=== PATIENT | female | born 1970 | race Caucasian/White ===

== ENCOUNTER 2016-09-03 13:32 | Emergency (ER) | payer MEDICARE ==
[2016-09-03 13:55] LABS: Mean Cell Volume 88.3 fl (78-100); Mean Corpuscular Hemoglobin 27.1 pg (26-32); Mean Platelet Volume 8.9 fl (6-9.5); Platelet Count 563 K/mm3 (150-450); Red Blood Count 3.17 M/mm3 (4.1-5.4); White Blood Count 9.8 K/mm3 (4.0-10.5)
--- NOTE | 2016-09-03 13:57 | ERPHSYRPT ---
- History of Present Illness Time Seen by Provider: 09/03/16 13:42 Source: patient Patient Subjective Stated Complaint: Pt states she had radiation today for a tumor in the left lung. When she got home she started having heaviness in the left arm. She says she has never had this before. Triage Nursing Assessment: Pt alert and oriented x3. skin pink warm and dry. afebrile. left radial pulse present and regular. no weakness noted in LUE. pain with movement - pt states is normal d/t tumor. no facial drooping noted. pupils 3mm and reactive Physician History: CC: left arm weakness/numbness Hx: 46 y/o patient of Dr Cordero with hx of Stage 4 sarcoma. She went home this AM from XRT and at around 10AM she felt weakness and tingling in left upper arm. She has feeling of popping sensation in neck. No hx of stroke or heart disease. She has chronic chest pains from the sarcoma. She has hx of neurofibromatosis. Timing/Duration: today (10aM) Severity: mild Allergies/Adverse Reactions: morphine Allergy (Verified 09/03/16 13:41) Home Medications: Alprazolam 1 mg [Xanax 1 mg] 1 mg PO TID PRN 03/27/14 [History] Duloxetine HCl [Cymbalta] 90 mg PO DAILY 03/27/14 [History] Gabapentin 800 mg PO TID 03/27/14 [History] Oxycodone HCl [Roxicodone] 30 mg PO Q4H PRN 06/22/14 [History] Oxycodone HCl [Oxycontin] 80 mg PO BID 06/06/15 [History] Fluticasone/Salmeterol [Advair 250-50 Diskus] 2 puff IH DAILY 11/20/15 [History] Trazodone HCl 100 mg PO HS 11/20/15 [History] Hx Tetanus, Diphtheria Vaccination/Date Given: Yes Hx Influenza Vaccination/Date Given: Yes Hx Pneumococcal Vaccination/Date Given: No Immunizations Up to Date: Yes - Review of Systems Constitutional: No Fever, No Chills Eyes: No Symptoms Ears, Nose, & Throat: No Symptoms Cardiac: Chest Pain (chronic) Abdominal/Gastrointestinal: No Abdominal Pain, No Nausea, No Vomiting Musculoskeletal: Neck Pain, No Back Pain, No Fall, No Injury Skin: No Rash Neurological: Focal Weakness (left upper arm), Parasthesia (left arm), No Headache All Other Systems: Reviewed and Negative - Past Medical History Pertinent Past Medical History: Yes Neurological History: Other ENT History: No Pertinent History Cardiac History: Hypertension Respiratory History: Asthma, Lung Cancer Endocrine Medical History: No Pertinent History Musculoskeletal History: Other GI Medical History: Hernia History: No Pertinent History Psycho-Social History: Anxiety, Depression Female Reproductive Disorders: No Pertinent History Other Medical History: 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 upper portion of the left lung removed along with a tumor - Social History Smoking Status: Never smoker Exposure to second hand smoke: Yes Alcohol Use: Socially Drug Use: none Patient Lives Alone: No Significant Family History: other - Female History Hx Now: No - Nursing Vital Signs Nursing Vital Signs: Initial Vital Signs Temperature 98.3 F Temperature Source Oral Pulse Rate 108 Respiratory Rate 20 Blood Pressure [Right Arm] 114/72 Pain Intensity 6 - [place] Coma Scale Best Eye Response ([place]): (4) open spontaneously Best Verbal Response ([place]): (5) oriented Best Motor Response ([place]): (6) obeys commands [place] Total: 15 - Physical Exam General Appearance: alert Eye Exam: bilateral eye: PERRL, EOMI Ears, Nose, Throat Exam: moist mucous membranes Neck Exam: midline tenderness Respiratory: diminished breath sounds, No respiratory distress Cardiovascular: regular rate/rhythm Gastrointestinal: soft, No tenderness, No distention, No mass, No guarding Extremity Exam: normal inspection Mental Status: alert, oriented x 3, cooperative controls design engineer Exam: normal hearing, normal speech, PERRL Skin Exam: warm, dry, other (scattered neurofibromas) SpO2 Interpretation: normal SpO2: 98 Oxygen Delivery: Room Air Comments: ROM intact both arms and legs. She appears to have mild weakness of the left upper arm. - Course Nursing assessment & vital signs reviewed: Yes EKG Interpreted by Me: RATE (110), Sinus Tach, NORMAL AXIS, NORMAL INTERVALS ( QTc 374), Non-specific ST Changes - Radiology Exams cxr X-ray Interpretation: Discussed w/ radiologist (worsening tumor with rib destruction) - CT Exams head CT Interpretation: Negative, Tele-radiologist Report cervical CT Interpretation: Tele-radiologist Report, No Fracture (no bony destructive lesions) Ordered Tests: Active Orders 24 hr Category Date Time Status EKG-ER Only STAT Care 09/03/16 13:50 Active IV Insertion STAT Care 09/03/16 13:50 Active NPO (ED) STAT Care 09/03/16 13:50 Active Pulse Oximetry (ED) STAT Care 09/03/16 13:50 Active CERVICAL SPINE WO CONTRAST [CT] Stat Exams 09/03/16 13:50 Completed CHEST 2 VIEWS (PA AND LAT) Stat Exams 09/03/16 13:51 Completed HEAD WITHOUT CONTRAST [CT] Stat Exams 09/03/16 13:50 Completed CBC W DIFF Stat Lab 09/03/16 13:40 Completed CMP Stat Lab 09/03/16 13:40 Completed Manual Differential NC Stat Lab 09/03/16 13:40 Completed PROTIME WITH INR Stat Lab 09/03/16 13:40 Completed PTT Stat Lab 09/03/16 13:40 Completed Lab/Rad Data: Laboratory Result Diagrams 09/03/16 13:40 09/03/16 13:40 Laboratory Results 09/03/16 09/03/16 09/03/16 Range/Units 13:40 13:40 13:40 WBC 9.8 (4.0-10.5) K/mm3 RBC 3.17 L (4.1-5.4) M/mm3 Hgb 8.6 L (12.0-16.0) gm/dl Hct 28.0 L (35-47) % MCV 88.3 (78-100) fl MCH 27.1 (26-32) pg MCHC 30.7 L (32-36) g/dl RDW 16.0 H (11.5-14.0) % Plt Count 563 H (150-450) K/mm3 MPV 8.9 (6-9.5) fl Segmented Neutrophils 89 H (36.0-66.0) % Lymphocytes (Manual) 6 L (24-44) % Monocytes (Manual) 3 (0.0-12.0) % Eosinophils (Manual) 1 (0.00-3.0) % Basophils (Manual) 1 (0.0-1.0) % Differential Comment ABNORMAL Platelet Estimate INCREASED (NORMAL) Anisocytosis 1+ INR 1.37 (0.8-3.0) PTT 32.8 (25.3-37.0) SECONDS Sodium 132 L (136-145) mEq/L Potassium 4.4 (3.5-5.1) mEq/L Chloride 96 L (98-107) mEq/L Carbon Dioxide 29.7 (21-32) mEq/L Anion Gap 10.8 (5-15) MEQ/L BUN 9 (9-20) mg/dL Creatinine 0.70 (0.55-1.30) mg/dl Estimated GFR > 60 ML/MIN Glucose 117 H (70-110) MG/DL Calcium 9.7 (8.5-10.1) mg/dL Total Bilirubin 0.4 (0.2-1.0) mg/dL AST 18 (15-37) U/L ALT 9 L (12-78) U/L Alkaline Phosphatase 203 H (46-116) U/L Serum Total Protein 6.7 (6.4-8.2) gm/dL Albumin 2.0 L (3.4-5.0) g/dL - Progress Progress Note: 09/03/16 13:55 She has hx of stage 4 sarcoma. Unable to get MRI due to spinal cord stimulator implanted. Will get CT head and cervical to evaluate for stroke or structural spinal lesion. Patient is not TPA candidate as time of presentation is greater than 3 hours, low NIH score, and sarcoma. 09/03/16 15:29 Pt stable. NIH score 0. Likely nerve impingement from tumor or inflammation for XRT. Spoke to Dr Wilfred Cook her radiation oncologist. He will review reports and see her as scheduled tomorrow. Counseled pt/family regarding: lab results, diagnosis, need for follow-up, rad results - Departure Time of Disposition: 15:30 Departure Disposition: Home Clinical Impression: Left arm weakness, left chest sarcoma Condition: Stable Critical Care Time: No Referrals: GÓMEZ CORDERO MD [Primary Care Provider] - WILFRED COOK [NON-STAFF PHY W/O PRIVILEGES] - Instructions: Numbness/tingling Additional Instructions: See Dr Joyce tomorrow as scheduled. Return for problems or concerns.
[2016-09-03 14:21] LABS: ALKALINE PHOSPHATASE 203 U/L (46-116); ANION GAP 10.8 MEQ/L (5-15); BILIRUBIN,TOTAL 0.4 mg/dL (0.2-1.0); BLOOD UREA NITROGEN 9 mg/dL (9-20); CHLORIDE 96 mEq/L (98-107); Carbon Dioxide 29.7 mEq/L (21-32); Glucose 117 MG/DL (70-110); Potassium 4.4 mEq/L (3.5-5.1); SGOT/AST 18 U/L (15-37); SGPT/ALT 9 U/L (12-78); SODIUM 132 mEq/L (136-145); Total Protein 6.7 gm/dL (6.4-8.2)
[2016-09-03 14:22] LABS: INR 1.37 (0.8-3.0); PROTIME 15.2 SECONDS (9.95-12.35)
[2016-09-03 14:24] LABS: PTT 32.8 SECONDS (25.3-37.0)
--- NOTE | 2016-09-03 14:56 | XRAY ---
Indication: Left arm weakness/numbness. Known left lung tumor. Multiple contiguous axial images obtained through the head without contrast. Comparison: April 26, 2011 Ventriculosulcal pattern appears symmetric. Again no acute intracranial hemorrhage, abnormal extra-axial fluid collection, or mass effect. Fourth ventricle is midline without hydrocephalus. Slater-white matter differentiation preserved. Bony calvarium intact without suspicious lytic/blastic lesion. Visualized paranasal sinuses and mastoid air cells are pneumatized and clear. Impression: Stable negative CT head without contrast exam. CT DI 67.22
--- NOTE | 2016-09-03 15:00 | XRAY ---
Indication: Left arm weakness/numbness. Known left lung tumor. Multiple contiguous axial images obtained through the cervical spine. Sagittal and coronal reformatted images obtained. Comparison: February 02, 2011 Again spinal stimulator leads posterior to the C2-C4 lamina produces extreme beam artifact limiting these levels. No acute fracture, suspicious bony lesions, or spinal canal stenosis. Sagittal and coronal reformatted images demonstrates slight lordotic reversal, positional versus paraspinal spasm. Disc spaces maintained. No acute compression fracture, subluxation, or jumped facet. Normal-appearing craniocervical junction. Visualized noncontrasted soft tissues including base of the brain unremarkable. Visualized left lung apex demonstrates new pleural thickening. Impression: 1. Again posterior C2-C4 similar leads produces beam artifact. 2. Stable lordotic reversal, positional versus paraspinal spasm. 3. No acute fracture or spinal canal stenosis. 4. New left apical pleural thickening incompletely visualized. CT DI 35.21
--- NOTE | 2016-09-03 15:06 | XRAY ---
Indication: Left arm weakness/numbness. Known left lung tumor. Comparison: April 02, 2016 PA/lateral chest demonstrate continued enlarging left lung pleural-based mass with worsening left lung compressive atelectasis and near complete left hemithorax opacification. Increasing left apical pleural thickening. Left 4th-6th ribs demonstrate worsening erosive appearance. Right lung clear. Heart is again translated and grossly not enlarged. Previous right venous access catheter has removed. Stable cervical spinal stimulator leads. Impression: Worsening left lung malignancy with again compressive atelectasis and continued worsening left rib destruction as detailed.
[2016-09-03 15:11] LABS: Basophil 1 % (0.0-1.0); Eosinophil 1 % (0.00-3.0); Total Cells Counted 100
[2016-09-03 15:12] LABS: Platelet Estimate INCREASED (NORMAL)
[2016-09-03 15:14] LABS: ANISOCYTOSIS 1+
[2016-09-03] MEDS ORDERED: OXYCODONE-ACETAMINOPHEN 10-325 PO STA (15:58)
[2016-09-03] MEDS ORDERED: OXYCODONE-ACETAMINOPHEN 10-325 ONE (16:02)
[2016-09-03 16:06] VITALS: BP 112/61; PULSE 103; O2SAT 97
== END 2016-09-03 16:10 | disposition home or self-care (01) ==
LOC: ED 13:32
DX: R29.898 Other symptoms and signs involving the musculoskeletal system (principal); C76.1 Malignant neoplasm of thorax
CPT/HCPCS: 36000; 36415; 70450; 71020; 72125; 80053; 85025; 85610; 85730; 93005; 99283; 99284; L0120

== ENCOUNTER 2016-09-13 08:24 | Emergency (ER) | payer MEDICARE ==
[2016-09-13] MEDS ORDERED: Hydromorphone 1 mg/ml Ampule IV ONE ×2 (08:38→09:46)
--- NOTE | 2016-09-13 08:45 | ERPHSYRPT ---
- History of Present Illness Time Seen by Provider: 09/13/16 08:28 Source: patient, family (son) Patient Subjective Stated Complaint: Pt states she was sitting in the edge of the bed and fell off last night around 9pm. Pt hit chest and left side on the bedside table. Complaining of difficulties breathing and pain under the left breast. Pt states she also hit right lower leg. Triage Nursing Assessment: Pt alert and oriented x3. skin pink warm and dry. afebrile. respirations rapid and shallow. pt moaning with movement Physician History: CC: left chest injury Hx: 46 y/o patient with long hx of stage 4 sarcoma. She has recently finished palliative XRT left chest and is now on hospice. She fell from the bed last night and has left chest pain with difficulty breathing. Some right leg pain at her pre-existing tumor excision/hematoma site. She has increased dyspnea. Took pain medication at home. Came for evaluation. Timing/Duration: today (in night time) Severity: severe Allergies/Adverse Reactions: morphine Allergy (Verified 09/03/16 13:41) Home Medications: Alprazolam 1 mg [Xanax 1 mg] 0.5 mg PO TID PRN 03/27/14 [History] Duloxetine HCl [Cymbalta] 90 mg PO DAILY 03/27/14 [History] Gabapentin 800 mg PO TID 03/27/14 [History] Fluticasone/Salmeterol [Advair 250-50 Diskus] 2 puff IH DAILY 11/20/15 [History] Trazodone HCl 100 mg PO HS 11/20/15 [History] Fentanyl 25Mcg Patch [Duragesic 25MCG Patch] 25 mcg TOP Q3D 09/13/16 [ History] Hydromorphone HCl 4 mg [Dilaudid 4 MG Tab] 4 mg PO Q4H 09/13/16 [History] Methylphenidate 5 mg [Ritalin 5 MG] 5 mg PO BID 09/13/16 [History] Hx Tetanus, Diphtheria Vaccination/Date Given: Yes Hx Influenza Vaccination/Date Given: No Hx Pneumococcal Vaccination/Date Given: No Immunizations Up to Date: Yes - Review of Systems Constitutional: No Fever, No Chills Eyes: No Symptoms Ears, Nose, & Throat: No Symptoms Respiratory: Dyspnea, No Cough Cardiac: Chest Pain (left chest) Abdominal/Gastrointestinal: No Abdominal Pain, No Nausea, No Vomiting Musculoskeletal: Injury (right lower leg), No Back Pain, No Neck Pain Skin: No Rash Neurological: No Focal Weakness, No Headache, No Parasthesia All Other Systems: Reviewed and Negative - Past Medical History Pertinent Past Medical History: Yes Neurological History: Other ENT History: No Pertinent History Cardiac History: Hypertension Respiratory History: Asthma, Lung Cancer Endocrine Medical History: No Pertinent History Musculoskeletal History: Other GI Medical History: Hernia History: No Pertinent History Psycho-Social History: Anxiety, Depression Female Reproductive Disorders: No Pertinent History Other Medical History: 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 upper portion of the left lung removed along with a tumor - Social History Smoking Status: Never smoker Exposure to second hand smoke: Yes Alcohol Use: Socially Drug Use: none Patient Lives Alone: No Significant Family History: other - Female History Hx Now: No - Nursing Vital Signs Nursing Vital Signs: Initial Vital Signs Temperature 97.7 F Temperature Source Oral Pulse Rate 111 Respiratory Rate 26 Blood Pressure [Right Arm] 136/82 Pain Intensity 2 - Physical Exam General Appearance: alert Eye Exam: PERRL/EOMI Ears, Nose, Throat Exam: moist mucous membranes Neck Exam: normal inspection, non-tender Respiratory Exam: chest tenderness (left with deformity from known tumor), diminished breath sounds Cardiovascular Exam: regular rate/rhythm Gastrointestinal/Abdomen Exam: soft, No tenderness, No distention Extremity Exam: normal range of motion, other (hematoma right lower leg at prior excision site, no erythema) Neurologic Exam: alert, oriented x 3, cooperative, sensation nml, No motor deficits Skin Exam: warm, dry SpO2 Interpretation: normal SpO2: 98 Oxygen Delivery: Room Air - Course Nursing assessment & vital signs reviewed: Yes Ordered Tests: Active Orders 24 hr Category Date Time Status IV Insertion STAT Care 09/13/16 08:38 Active NPO (ED) STAT Care 09/13/16 08:38 Active CHEST 1 VIEW (PORTABLE) Stat Exams 09/13/16 08:38 Completed LOWER LEG Stat Exams 09/13/16 08:39 Completed Medication Summary Discontinued Medications Generic Name Dose Route Start Last Admin Trade Name Peter PRN Reason Stop Dose Admin Hydromorphone HCl 1 mg 09/13/16 08:38 09/13/16 08:59 Hydromorphone 1 Mg/Ml Ampule IV 09/13/16 08:39 1 mg STAT ONE Administration Hydromorphone HCl Confirm 09/13/16 08:52 Hydromorphone 1 Mg/Ml Ampule Administered 09/13/16 08:53 Dose 1 mg .ROUTE .STK-MED ONE Hydromorphone HCl 1 mg 09/13/16 09:46 Hydromorphone 1 Mg/Ml Ampule IV 09/13/16 09:47 STAT ONE - Progress Progress Note: 09/13/16 08:45 [facility] on [facility]. She has seen hospice nurse this AM who sent her here for evaluation. 09/13/16 09:48 CXR and leg xray show known tumor with no acute change. Pain improved with meds. She is on terminal hospice, has family caregivers at home, hospice nurse here, pain and breathing meds at home. She is ready to go home. Will release with continued hospice. Counseled pt/family regarding: diagnosis, need for follow-up, rad results - Departure Time of Disposition: 09:49 Departure Disposition: Home Clinical Impression: Left-sided chest wall pain, stage 4 sarcoma Fall Qualifiers: Encounter type: initial encounter Qualified Code(s): W19.XXXA - Unspecified fall, initial encounter Condition: Stable Critical Care Time: No Referrals: GÓMEZ CORDERO MD [Primary Care Provider] - Instructions: Prevent Falls, Contusion Additional Instructions: Ice packs off and on. Further pain management by hospice team.
[2016-09-13] MEDS ORDERED: Hydromorphone 1 mg/ml Ampule ONE ×2 (08:52→09:48)
--- NOTE | 2016-09-13 09:31 | XRAY ---
Indication: Pain following fall. Comparison: September 03, 2016. Portable chest demonstrates continued worsening left lung near complete opacification due to known mass with stable mass effect, left 4th-6th rib erosions, scoliosis, and cervical spinal leads. Remaining heart and right lung unremarkable. No new findings.
--- NOTE | 2016-09-13 09:35 | XRAY ---
Indication: Pain and swelling following fall. Known chest mass/tumor. Comparison: May 23, 2016. 2 views of the right lower leg demonstrates new intact tibial intramedullary gosia with proximal/distal screws. New mid leg anterior soft tissue mass with bony erosion of the adjacent tibial shaft worrisome for malignancy. No acute fracture or dislocation.
[2016-09-13 10:04] VITALS: O2SAT 96
[2016-09-13 10:17] VITALS: BP 126/89; PULSE 114
== END 2016-09-13 10:17 | disposition home or self-care (01) ==
LOC: ED 08:24
DX: R07.89 Other chest pain (principal); C49.9 Malignant neoplasm of connective and soft tissue, unspecified; W06.XXXA Fall from bed, initial encounter; W22.03XA Walked into furniture, initial encounter
CPT/HCPCS: 36000; 71010; 73590; 96374; 96376; 99283; 99284; J1170